=== PATIENT | male | born 1950 ===

== ENCOUNTER 2018-08-27 09:32 | Outpatient (CLI) | payer OTHER ==
[~2018-08-27] VITALS: Ht 167.6 cm; Wt 96.2 kg
== END 2018-08-27 09:45 | disposition home or self-care (01) ==
LOC: OFIC 805 09:32
DX: J30.89 Other allergic rhinitis (principal); R09.81 Nasal congestion

== ENCOUNTER 2018-09-27 08:03 | Outpatient (CLI) | payer OTHER ==
[~2018-09-27] VITALS: Ht 152.4 cm; Wt 96.2 kg
== END 2018-09-27 08:20 | disposition home or self-care (01) ==
LOC: OFIC 805 08:03
DX: J30.89 Other allergic rhinitis (principal); R09.81 Nasal congestion

== ENCOUNTER 2018-11-29 10:46 | Outpatient (CLI) | payer OTHER ==
[~2018-11-29] VITALS: Ht 152.4 cm; Wt 95.3 kg
== END 2018-11-29 11:10 | disposition home or self-care (01) ==
LOC: OFIC 805 10:46
DX: J30.89 Other allergic rhinitis (principal); R09.81 Nasal congestion

== ENCOUNTER 2018-12-03 14:03 | Outpatient (CLI) | payer OTHER | END 2018-12-03 14:14 | disposition home or self-care (01) | LOC: TOM 14:03 | DX: J32.8 Other chronic sinusitis (principal); J30.89 Other allergic rhinitis ==

== ENCOUNTER 2018-12-15 08:51 | Outpatient (CLI) | payer OTHER | END 2018-12-15 08:52 | disposition home or self-care (01) | LOC: RAD 08:51 | DX: R07.89 Other chest pain (principal) ==